=== PATIENT | female | born 1985 | race African-American/Black ===

== ENCOUNTER → 2024-01-14 | Day surgery (SDC) | payer MEDICARE, OTHER ==
[~2024-01-14] MED LIST: DEXMEDETOMIDINE HCL 200 MCG/2 ML VIAL ONE; FENTANYL CITRATE/PF 100MCG/2 ML INJ ONE; FEROSUL325 MG PO; LIDOCAINE HCL 2% LOCAL INJ 5 ML SDV VIAL INJ ONE; MIDAZOLAM HCL 2 MG/2 ML VIAL ONE; PANTOPRAZOLE SOD 40 MG TABEC PO ONE; PROPOFOL IV EMULSION 50 ML IV ONE; SIMETHICONE 40 MG/0.6 ML BTL ONE; TOPIRAMATE100 MG PO
[2024-01-14] MEDS: LACTATED RINGER'S 1,000 ML ONE (11:51)
[2024-01-14 16:18] VITALS: BP 110/67; PULSE 78; RESP 17; O2SAT 95
== END | disposition home or self-care (01) ==
LOC: OR 11:45
PROVIDERS: ATTEND Internal Medicine Gastroenterology
DX: D64.9 Anemia, unspecified (principal); D12.3 Benign neoplasm of transverse colon; K31.7 Polyp of stomach and duodenum; K29.50 Unspecified chronic gastritis without bleeding; K20.90 Esophagitis, unspecified without bleeding; K44.9 Diaphragmatic hernia without obstruction or gangrene; K64.8 Other hemorrhoids; Z71.3 Dietary counseling and surveillance; G81.94 Hemiplegia, unspecified affecting left nondominant side; Z79.899 Other long term (current) drug therapy; Z68.28 Body mass index [BMI] 28.0-28.9, adult; Z80.0 Family history of malignant neoplasm of digestive organs
CPT/HCPCS: 36415; 43239; 43251; 45385; 84702; C9113; J2001; J2250; J2704; J3010; J7121; S0164